=== PATIENT | female | born 1990 | race African-American/Black ===

== ENCOUNTER 2024-02-02 16:41 | Emergency (ER) | payer BC, OTHER ==
[~2024-02-02] VITALS: Ht 165.1 cm; Wt 66.0 kg
[2024-02-02 16:47] VITALS: O2SAT 100
[2024-02-02 16:51] VITALS: BP 123/59; PULSE 102; RESP 18; TEMP 98.7; O2SAT 100
[2024-02-02] MEDS ORDERED: KETOROLAC 30MG/ML VIAL IM STA (17:59)
[2024-02-02] MEDS ORDERED: CYCL5TAB3 PO (18:58)
[2024-02-02] MEDS ORDERED: NAPR-681 PO (18:58)
[2024-02-02 19:09] LABS: CLARITY URINE CLEAR (CLEAR); COLOR URINE YELLOW (YELLOW); GLUCOSE URINE NEGATIVE (NEGATIVE); KETONES URINE TRACE (NEGATIVE); LEUKOCYTE ESTERASE URINE TRACE (NEGATIVE); NITRITE URINE NEGATIVE (NEGATIVE); OCCULT BLOOD URINE 3+ (NEGATIVE); PROTEIN URINE TRACE (NEGATIVE); SPECIFIC GRAVITY URINE 1.028 (1.005-1.030)
[2024-02-02 19:21] LABS: BACTERIA URINE 1+; SQUAMOUS EPITHELIAL CELL URINE 1+ /lpf (RARE/1+); TRICHOMONAS URINE 1+
[2024-02-04] MEDS ORDERED: METR-167 MT (20:33)
== END 2024-02-02 23:13 | disposition home or self-care (01) ==
LOC: ER 16:41
DX: G89.29 Other chronic pain (principal); M54.50 Low back pain, unspecified; J45.909 Unspecified asthma, uncomplicated
CPT/HCPCS: 81003; 81025; 99283; J1885